=== PATIENT | male | born 1975 | race Caucasian/White ===

== ENCOUNTER → 2017-01-03 | Outpatient (CLI) | payer OTHER | LOC: WSOH 09:53 | DX: Z02.1 Encounter for pre-employment examination (principal) ==

== ENCOUNTER 2019-02-01 19:19 | Emergency (ER) | payer OTHER ==
[~2019-02-01] VITALS: Ht 180.3 cm; Wt 90.9 kg
[2019-02-01 19:23] VITALS: TEMP 98.4
[2019-02-01] MEDS ORDERED: LIPITOR 10MG10 MG PO (19:30)
[2019-02-01] MEDS ORDERED: NORCO 325 MG-51 TAB PO (20:00)
[2019-02-01 20:10] VITALS: BP 137/83; PULSE 79
== END 2019-02-01 20:10 | disposition home or self-care (01) ==
LOC: COL.ER 19:19
DX: T24.202A Burn of second degree of unspecified site of left lower limb, except ankle and foot, initial encounter (principal); X10.0XXA Contact with hot drinks, initial encounter

== ENCOUNTER 2020-11-11 08:15 | Outpatient (RCR) | payer OTHER ==
[~2020-11-11 08:15] MED LIST: LIPITOR 10MG10 MG PO; NORCO 325 MG-51 TAB PO
== END 2020-12-15 | disposition home or self-care (01) ==
LOC: MKS.ESL.PT
DX: M17.12 Unilateral primary osteoarthritis, left knee (principal)

== ENCOUNTER → 2021-05-17 10:00 | Outpatient (RCR) | payer OTHER ==
[~2021-05-17 10:00] MED LIST changes: +CRUTCHES MC; +MOBIC 7.5MG7.5 MG PO
== END ==
LOC: MKS.ESL.PT 12-16 13:15
DX: M17.12 Unilateral primary osteoarthritis, left knee (principal)

== ENCOUNTER 2021-06-16 13:24 | Emergency (ER) | payer OTHER ==
[~2021-06-16] VITALS: Ht 180.3 cm; Wt 97.7 kg
[~2021-06-16 13:24] MED LIST changes: -CRUTCHES MC; -MOBIC 7.5MG7.5 MG PO
[2021-06-16 13:31] VITALS: TEMP 98.4
[2021-06-16] MEDS ORDERED: MOBIC 7.5MG7.5 MG PO (14:39)
[2021-06-16 14:42] VITALS: BP 123/78; PULSE 78
== END 2021-06-16 14:42 | disposition home or self-care (01) ==
LOC: COL.ER 13:24
DX: M25.511 Pain in right shoulder (principal); Z98.890 Other specified postprocedural states

== ENCOUNTER 2021-07-24 13:00 | Emergency (ER) | payer OTHER ==
[~2021-07-24] VITALS: Ht 180.3 cm; Wt 95.5 kg
[~2021-07-24 13:00] MED LIST changes: +MOBIC 7.5MG7.5 MG PO
[2021-07-24 13:29] VITALS: TEMP 98.4
[2021-07-24 15:00] VITALS: BP 148/78; PULSE 88
[2021-07-24] MEDS ORDERED: CRUTCHES MC (15:00)
== END 2021-07-24 15:03 | disposition home or self-care (01) ==
LOC: COL.ER 13:00
DX: S83.91XA Sprain of unspecified site of right knee, initial encounter (principal); M25.511 Pain in right shoulder; E78.5 Hyperlipidemia, unspecified; Z98.890 Other specified postprocedural states; Z79.899 Other long term (current) drug therapy; X50.1XXA Overexertion from prolonged static or awkward postures, initial encounter; Y93.01 Activity, walking, marching and hiking; Y92.512 Supermarket, store or market as the place of occurrence of the external cause
CPT/HCPCS: L1846